=== PATIENT | male | born 1990 | race Caucasian/White ===

== ENCOUNTER 2023-02-19 09:29 | Outpatient (REF) | payer OTHER, SELFPAY | END 2023-02-19 09:30 | disposition home or self-care (01) | LOC: HO.HOSX 09:29 | PROVIDERS: Visit Provider Physical Medicine & Rehabilitation | DX: M43.16 Spondylolisthesis, lumbar region (principal); M53.3 Sacrococcygeal disorders, not elsewhere classified | CPT/HCPCS: 72100 ==

== ENCOUNTER 2023-02-19 09:29 | Outpatient (AMB) | payer OTHER, SELFPAY ==
--- NOTE | 2023-02-19 09:41 | MHC.OFFVIS ---
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 States he recalls, while in High School, 15 years ago, he landed wrong after jumping, and has had pains and aches in his back since. States he doesn't have radiating pains down his legs however he is now experiencing sharp stabbing pain in his back, weakness and instability at times. Seen in ED and urgent care where xrays were taken and he was prescribed muscle relaxers. Denies injections in back, bracing or therapy. Allergies No Known Allergies Allergy (Verified 02/19/23 09:47) Medication List - Last Reconciled 02/19/23 by Hermila Porras MD No Known Home Meds HPI HPI Comments History of Present Illness Details Patient was referred from Urgent Care. He has been seen there 3 times this year for back pain. Previous back pain in HS. Always had dull pain since but not sharp. Back in spring, during playing soft ball, started having pain. Sharp pain on left side, non radicular. But both times, he felt weak on his legs compared to his baseline. Sharp pain resolved with rest and muscle relaxers. Again with soft ball, started having same sharp pain, left side, non radicular. At the time, could not use his legs as much . Pain lasted 3-4 days, gradually improving. Now no pain, but feels sensation on same left side. Non radicular. No numbness on feet. Though difficult walking on heels when waking up, resolved with showers. No bladder/bowel changes. Sharp pain worse with bending forward and stopping. He plays softball twice a week. 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 Played track and baseball in HS. Feels there is a slight tilt on left hip from HS, but never was sharp pain before. Goes to chiropractor more for neck pain, nowadays getting adjustment for back pain. Chronic neck issues, sepearate from this new back pain. 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 Patient was appropriately conversant and oriented. Good historian. MSK: No specific abnormalities found on inspection of the spine and all extremities. No pain with palpation over the lumbar area. Tenderness left SI joint Lumbar ROM was full but tender on flexion and extension. Bilateral hip, knee and ankle ROM WNL. No ligamentous laxity or crepitance. No increased effusion. Straight-leg raising test negative. FABERE test negative. Select test showed stiffness on left side.. Strength is 5/5 in all muscle groups tested. No increased tone noted. Neurological: Neurologic examination of the upper and lower extremities was nonfocal with intact sensation, muscle stretch reflexes and without focal motor deficits . Gilbert?s negative bilaterally. Babinski was down going bilaterally. Clonus was negative. Gait is non-antalgic without loss of balance. Results Reviewed Results Reviewed: Lumbar x-ray read as spondylolisthesis with spondylosis most pronounced at L5-S1. Patient brought in a CD which will be uploaded - independently reviewed, listhesis only mild, less than 25%, disc space loss L5-S1; endplate spurs I reviewed records from the following: Urgent care Assessment & Plan Assessment & Plan (1) Spondylolisthesis, lumbar region: Code(s): M43.16 - Spondylolisthesis, lumbar region Plan: Appears less than 25% on x-ray. Will get flexion and extension views to evaluate for instability. (2) Lumbar spondylolysis: Code(s): M43.06 - Spondylolysis, lumbar region (3) Sacroiliac joint dysfunction of left side: Code(s): M53.3 - Sacrococcygeal disorders, not elsewhere classified Plan: Acute versus chronic injury? Plan SI joint stiffness which most likely is the cause of the sharp pain on the left side. Exam does not show any signs of lumbar radiculopathy or neurologic deficits. However x-ray reported pars fracture L5-S1. When I independently reviewed the CT images, I did not see any pars fracture and spondylolisthesis is mild less than 25%. It would still be prudent to get a lumbar MRI to evaluate for acuteness of pars fracture. While waiting for MRI, patient can continue chiropractic treatments especially for the left SI joint. Further instructions given for his chiropractor. We discussed whether it is safe for him to continue playing softball for this season. If this is just an SI joint issue, he can play if without pain. Never play through pain. However if we are dealing with pars fractures/spondylolysis or instability, there are more risks involved. We agreed to wait for results of flexion/extension views today before we decide. He understands that getting an MRI takes longer done a few days/weeks. Assessment and plan discussed with patient, and patient was agreeable. All questions were answered thoroughly. Hermila Porras MD, ELIDA Board Certified, [place] [employer] (ABPMR) Board Certified, [place] [employer] (ABEM) Orders: Orders XR lumbar spine 2-3V Today M43.06 - Spondylolysis, lumbar region, M43.16 - Spondylolisthesis, lumbar region, M53.3 - Sacrococcygeal disorders, not elsewhere classified MR lumbar spine wo con Today M43.06 - Spondylolysis, lumbar region, M43.16 - Spondylolisthesis, lumbar region Referrals Chiropractic Referral M53.3 - Sacrococcygeal disorders, not elsewhere classified Coding Level of Care Code New Pt Level 4 (30997) Diagnoses Spondylolisthesis, lumbar region M43.16 Lumbar spondylolysis M43.06 Sacroiliac joint dysfunction of left side M53.3
[2023-02-19 09:52] VITALS: BMI 31.6
== END 2023-02-19 10:30 | disposition home or self-care (01) ==
PROVIDERS: Visit Provider Physical Medicine & Rehabilitation
DX: M43.16 Spondylolisthesis, lumbar region (principal); M43.06 Spondylolysis, lumbar region; M53.3 Sacrococcygeal disorders, not elsewhere classified
CPT/HCPCS: 99204